=== PATIENT | female | born 1970 | race Two or more races ===

== ENCOUNTER → 2019-06-23 | Outpatient (CLI) | payer OTHER ==
[~2019-06-23] MED LIST: KETO10TA2 PO; ORPH100T PO
== END | disposition home or self-care (01) ==
LOC: SONOGRAMA 09:38
DX: N80.0 Endometriosis of uterus (principal); Z86.000 Personal history of in-situ neoplasm of breast; N94.5 Secondary dysmenorrhea

== ENCOUNTER → 2023-09-24 | Emergency (ER) | payer OTHER ==
[~2023-09-24] VITALS: Ht 167.6 cm; Wt 762.5 kg
[2023-09-24 21:14] LABS: HEMOGLOBIN 11.2 g/dL (12.0-15.00); MEAN CELL VOLUME 78.7 fL (80.00-100.00); PLATELET COUNT 316 K/uL (150-450); RED BLOOD COUNT 4.31 M/uL (4.00-6.00)
[2023-09-24 21:31] LABS: PH,URINE 6.5 (5.0-8.0); URINE APPEARANCE Clear; URINE BILIRRUBIN Negative (NEGATIVE); URINE BLOOD Moderate; URINE COLOR Yellow; URINE GLUCOSE Negative (NEGATIVE); URINE LEUKOCYTE Small; URINE NITRATE Negative; URINE PROTEIN Negative (NEGATIVE); URINE UROBILINOGEN 0.2 E.U./dl
[2023-09-24 21:35] LABS: URINE BACTERIA 1029.3 uL (0.0-1933); URINE EPITHELIAL CELLS 26.1 uL (0.0-38.8); URINE RBC 104.6 uL (0.0-20.8); URINE WBC 16.6 uL (0.0-23.2)
[2023-09-24 21:39] LABS: ALBUMIN 3.3 gm/dL (3.4-5.0); BILIRUBIN TOTAL 0.13 mg/dL (0.3-1.2); CALCIUM 8.8 mg/dL (8.5-10.1); CREATININE SERUM 0.92 mg/dL (0.55-1.02); GFR 63.61; GLOBULINA 3.6 G/DL (2.4-3.5); POTASSIUM 4.27 mEq/L (3.5-5.1); TOTAL PROTEIN 6.9 gm/dL (6.4-8.2)
[2023-09-24 21:44] LABS: RED CELL DISTRIBUTION WIDTH 17.7 % (11.5-14.5)
== END | disposition left against medical advice (07) ==
LOC: ER 19:05
PROVIDERS: General Practice
DX: R10.2 Pelvic and perineal pain (principal); N83.201 Unspecified ovarian cyst, right side; Z88.8 Allergy status to other drugs, medicaments and biological substances